=== PATIENT | female | born 1960 | race Caucasian/White ===

== ENCOUNTER → 2017-06-19 | Outpatient (CLI) | payer MEDICARE ==
[~2017-06-19] MED LIST: GADOBUTROL 10 MMOL/10 ML PFS ONE
== END ==
LOC: CFH 12:30
PROVIDERS: ATTEND Registered Nurse
DX: G52.9 Cranial nerve disorder, unspecified (principal); M47.814 Spondylosis without myelopathy or radiculopathy, thoracic region; M48.02 Spinal stenosis, cervical region; M47.893 Other spondylosis, cervicothoracic region; M25.78 Osteophyte, vertebrae
CPT/HCPCS: 70553; 72156; A9585

== ENCOUNTER → 2018-04-02 | Outpatient (CLI) | payer MEDICARE | END | disposition home or self-care (01) | LOC: CFH 10:35 | PROVIDERS: ATTEND Family Medicine | DX: D30.02 Benign neoplasm of left kidney (principal); K76.0 Fatty (change of) liver, not elsewhere classified | CPT/HCPCS: 76700 ==

== ENCOUNTER 2018-06-03 10:48 | Observation (INO) | payer MEDICARE ==
[~2018-06-03] VITALS: Ht 160 cm; Wt 98.6 kg
[2018-06-03] MEDS ORDERED: KETOROLAC 30 MG/1 ML ONE (11:25)
[2018-06-03] MEDS ORDERED: MORPHINE SULFATE 4 MG/ML, 1ML ONE ×4 (11:25→15:37)
[2018-06-03] MEDS ORDERED: KETOROLAC 30 MG/1 ML IVPush ONE (11:30)
[2018-06-03] MEDS: MORPHINE SULFATE 4 MG/ML, 1ML IVPush PRN ×2 (11:33→13:29)
--- NOTE | 2018-06-03 11:37 | NUR ---
PT MED NOTED FOR RLQ ABD PAIN 01/22. PT TO CT WITH TECH TRANSPORT
[2018-06-03 11:41] LABS: BASOPHILS % (AUTO) 0 % (0-1); EOSINOPHILS % (AUTO) 0 % (1-7); LYMPHOCYTES # (AUTO) 1.23 x10^3/uL (1-3.4); LYMPHOCYTES % (AUTO) 9 % (22-44); MD NO; MEAN CORPUSCULAR HEMOGLOBIN 29.9 pg (27.0-34.8); MEAN CORPUSCULAR HGB CONC 34.2 g/dL (32.4-35.8); MEAN CORPUSCULAR VOLUME 87.3 fL (80-100); MEAN PLATELET VOLUME 9.1 fL (7.4-10.4); MONOCYTES # (AUTO) 0.77 x10^3/uL (0.2-0.8); MONOCYTES % (AUTO) 6 % (2-9); NEUTROPHILS # (AUTO) 11.21 x10^3/uL (1.8-6.8); NEUTROPHILS % (AUTO) 85 % (42-75); PLATELET COUNT 230 x10^3/uL (130-400); RED BLOOD COUNT 4.82 x10^6/uL (3.82-5.3); RED CELL DISTRIBUTION WIDTH 13.2 % (9.6-15.2)
[2018-06-03 11:42] LABS: ALBUMIN 3.8 g/dL (3.4-5.0); ANION GAP 8 mmol/L (5-15); CALCIUM 9.1 mg/dL (8.5-10.1); CHLORIDE 102 mmol/L (98-107)
[2018-06-03 11:55] LABS: ALANINE AMINOTRANSFERASE 25 U/L (12-78); ALKALINE PHOSPHATASE 94 U/L (45-117); BILIRUBIN,TOTAL 0.6 mg/dL (0.2-1.0); CREATININE 0.76 mg/dL (0.55-1.02); TOTAL PROTEIN 7.2 g/dL (6.4-8.2)
--- NOTE | 2018-06-03 12:01 | NUR ---
PT OOB AMBULATE TO BATHROOM, UPRIGHT GAIT. INSTRUCTED ON COLLECTION OF CLEAN CATCH URINE SAMPLE
--- NOTE | 2018-06-03 13:37 | NUR ---
TASK RN: PT RESTING ON NORBETRO. VSS. CATHERINE CARE PERFORMED AND PT STRAIGHT CATHED. UA LABELED AND WALKED TO LAB.
[2018-06-03 13:59] LABS: MICROSCOPIC AUTO
[2018-06-03 14:00] LABS: CULTURE INDICATED? YES
[2018-06-03] MEDS ORDERED: MORPHINE SULFATE 4 MG/ML, 1ML IVPush ONE ×2 (14:30→15:30)
--- NOTE | 2018-06-03 15:00 | NUR ---
PT PAIN CONTINUES, PT SITTING ON EDGE OF GURNEY, C/O PAIN 01/22. DR. MENDOZA UPDATED.
--- NOTE | 2018-06-03 15:18 | NUR ---
PLAN FOR ADMIT PER CONVERSATION W/ DR. ALICEA
[2018-06-03] MEDS ORDERED: INSULIN REGULAR 100 UNITS/ML, 3ML VIAL ONE (16:29)
[2018-06-03] MEDS ORDERED: ACETAMINOPHEN 325 MG TABLET PO PRN (16:30)
[2018-06-03] MEDS ORDERED: LIDODERM 5% PATCH TD PRN (16:30)
[2018-06-03] MEDS ORDERED: LABETALOL 5MG/ML, 20ML IVPush PRN (16:30)
[2018-06-03] MEDS ORDERED: BISACODYL 10 MG SUPP PR PRN (16:30)
[2018-06-03] MEDS ORDERED: ONDANSETRON 2MG/ML, 2ML IVPush PRN (16:30)
[2018-06-03] MEDS ORDERED: DOCUSATE 100 MG CAPSULE PO PRN (16:30)
[2018-06-03] MEDS ORDERED: ONDANSETRON ODT 4 MG PO PRN (16:30)
[2018-06-03] MEDS ORDERED: ENALAPRILAT 1.25 MG/ML, 2ML IVPush PRN (16:30)
[2018-06-03] MEDS ORDERED: ENOXAPARIN 40 MG/0.4 ML ONE (16:56)
[2018-06-03] MEDS ORDERED: OMNIPAQUE 350 MG/ML, 100ML BOTTLE ONE (17:15)
[2018-06-03] MEDS ORDERED: MORP-59 PO (18:15)
[2018-06-03] MEDS ORDERED: LISI30TA4 PO (18:18)
[2018-06-03] MEDS ORDERED: BACL20TA PO (18:19)
[2018-06-03] MEDS ORDERED: MELO15TA24 PO (18:19)
[2018-06-03] MEDS ORDERED: LEVO25TA4 PO (18:20)
[2018-06-03] MEDS ORDERED: VENL25TA PO (18:21)
[2018-06-03] MEDS ORDERED: SIMV40TA3 PO (18:25)
[2018-06-03] MEDS: SODIUM CHLORIDE 0.9% 1,000 ML IV SCH (18:28)
[2018-06-03 19:02] VITALS: BP 101/62
[2018-06-03] MEDS: KETOROLAC 30 MG/1 ML IV PRN (20:50)
[2018-06-03] MEDS: ENOXAPARIN 40 MG/0.4 ML SQ SCH (20:50)
[2018-06-03] MEDS: LACTULOSE 10 GM/15 ML UDC PO SCH (20:50)
[2018-06-03 21:10] VITALS: BP 104/65
[2018-06-03] MEDS: CYCLOBENZAPRINE 10 MG TABLET PO PRN (22:49)
[2018-06-04 03:18] VITALS: BP 96/64
[2018-06-04] MEDS: SODIUM CHLORIDE 0.9% 1,000 ML IV SCH ×3 (03:25→22:03)
[2018-06-04 05:26] LABS: BASOPHILS # (AUTO) 0.01 x10^3/uL (0-0.1); BASOPHILS % (AUTO) 0 % (0-1); EOSINOPHILS # (AUTO) 0.01 x10^3/uL (0-0.4); EOSINOPHILS % (AUTO) 0 % (1-7); LYMPHOCYTES # (AUTO) 1.58 x10^3/uL (1-3.4); LYMPHOCYTES % (AUTO) 14 % (22-44); MD NO; MEAN CORPUSCULAR HGB CONC 34.1 g/dL (32.4-35.8); MEAN CORPUSCULAR VOLUME 87.8 fL (80-100); MEAN PLATELET VOLUME 9.2 fL (7.4-10.4); MONOCYTES # (AUTO) 0.71 x10^3/uL (0.2-0.8); MONOCYTES % (AUTO) 6 % (2-9); NEUTROPHILS # (AUTO) 9.39 x10^3/uL (1.8-6.8); NEUTROPHILS % (AUTO) 80 % (42-75); PLATELET COUNT 176 x10^3/uL (130-400); RED BLOOD COUNT 4.23 x10^6/uL (3.82-5.3); RED CELL DISTRIBUTION WIDTH 13.3 % (9.6-15.2)
[2018-06-04 05:41] LABS: ALBUMIN 3.1 g/dL (3.4-5.0); ANION GAP 8 mmol/L (5-15); CALCIUM 7.8 mg/dL (8.5-10.1); CHLORIDE 105 mmol/L (98-107)
[2018-06-04] MEDS: KETOROLAC 30 MG/1 ML IV PRN ×3 (05:52→21:15)
[2018-06-04 05:54] LABS: ALANINE AMINOTRANSFERASE 21 U/L (12-78); ALKALINE PHOSPHATASE 81 U/L (45-117); BILIRUBIN,TOTAL 0.6 mg/dL (0.2-1.0); CHOL/HDL RATIO 3.2; CHOLESTEROL, TOTAL 128 mg/dL (140-239); CREATININE 0.74 mg/dL (0.55-1.02); HDL CHOL % 31 % (28-40); HDL CHOLESTEROL (DIRECT) 40 mg/dL (40-60); LDL CHOLESTEROL,CALCULATED 58 mg/dL (54-169); LDL/HDL RATIO 1.5 (0.5-3.0); TRIGLYCERIDES 149 mg/dL (50-200); VLDL CHOLESTEROL 30 mg/dL (0-25)
[2018-06-04 06:09] LABS: HEMOGLOBIN A1C 5.9 % (4.2-6.3)
[2018-06-04 07:11] VITALS: BP 101/64
[2018-06-04] MEDS: LACTULOSE 10 GM/15 ML UDC PO SCH ×2 (08:18→21:00)
[2018-06-04] MEDS: SENNA/DOCUSATE TABLET PO SCH (08:19)
[2018-06-04] MEDS: MAGNESIUM CITRATE 300ML ORAL SOL PO PRN ×2 (08:19→16:18)
[2018-06-04] MEDS: CYCLOBENZAPRINE 10 MG TABLET PO PRN (08:19)
[2018-06-04 14:27] VITALS: BP 102/67
[2018-06-04 18:27] VITALS: BP 108/69
[2018-06-04] MEDS ORDERED: SIMVASTATIN 40 MG TABLET PO SCH (21:00)
[2018-06-04] MEDS: MORPHINE SULFATE 15 MG PO SCH (21:00)
[2018-06-04] MEDS: ENOXAPARIN 40 MG/0.4 ML SQ SCH (21:14)
[2018-06-04] MEDS: MELOXICAM 15 MG TABLET PO SCH (21:15)
[2018-06-04] MEDS: BACLOFEN 10 MG TABLET PO SCH (21:15)
[2018-06-05 00:31] VITALS: BP 123/76
[2018-06-05] MEDS: CYCLOBENZAPRINE 10 MG TABLET PO PRN (04:07)
[2018-06-05] MEDS: KETOROLAC 30 MG/1 ML IV PRN (04:07)
[2018-06-05 07:05] VITALS: BP 116/59
[2018-06-05] MEDS: LACTULOSE 10 GM/15 ML UDC PO SCH (08:57)
[2018-06-05] MEDS: MELOXICAM 15 MG TABLET PO SCH (08:58)
[2018-06-05] MEDS: BACLOFEN 10 MG TABLET PO SCH (08:58)
[2018-06-05] MEDS ORDERED: VENLAFAXINE 75MG TABLET PO SCH (09:00)
[2018-06-05] MEDS: MORPHINE SULFATE 15 MG PO SCH (09:00)
[2018-06-05] MEDS ORDERED: LEVOTHYROXINE 25 MCG TABLET PO SCH (09:00)
[2018-06-05] MEDS: SENNA/DOCUSATE TABLET PO SCH (09:00)
[2018-06-05] MEDS ORDERED: LISINOPRIL 10 MG TABLET PO SCH (09:00)
== END 2018-06-05 09:30 | disposition home or self-care (01) ==
LOC: ED 12:26 → INTOOBSV 15:25 → EDIP 15:25 → 3NE 17:35
PROVIDERS: ADMIT Internal Medicine; ATTEND Internal Medicine
DX: R10.9 Unspecified abdominal pain (principal); K59.00 Constipation, unspecified; E03.9 Hypothyroidism, unspecified; R73.9 Hyperglycemia, unspecified; I10 Essential (primary) hypertension; E78.5 Hyperlipidemia, unspecified; F41.9 Anxiety disorder, unspecified; E78.00 Pure hypercholesterolemia, unspecified; D72.829 Elevated white blood cell count, unspecified; Z79.899 Other long term (current) drug therapy
CPT/HCPCS: 36415; 74174; 74176; 80053; 80061; 81001; 83036; 83605; 83690; 84443; 85025; 87086; 96361; 96372; 96374; 96375; 96376; 99285; G0378; J1650; J1885; J7030; Q9967

== ENCOUNTER → 2018-10-20 | Outpatient (CLI) | payer MEDICARE ==
[~2018-10-20] MED LIST changes: +BACL20TA PO; +LEVO25TA4 PO; +LISI30TA4 PO; +MELO15TA24 PO; +MORP-59 PO; +SIMV40TA3 PO; +VENL25TA PO
== END | disposition home or self-care (01) ==
LOC: CARD 12:22
PROVIDERS: ATTEND Registered Nurse
DX: R41.3 Other amnesia (principal)
CPT/HCPCS: 70553; 95819; A9585

== ENCOUNTER 2019-01-26 11:12 | Outpatient (CLI) | payer MEDICARE | END 2019-01-26 23:59 | disposition home or self-care (01) | LOC: RAD 11:12 | PROVIDERS: ATTEND Internal Medicine Cardiovascular Disease | DX: Z01.810 Encounter for preprocedural cardiovascular examination (principal) | CPT/HCPCS: 78452; 93017; A9502; J2785 ==

== ENCOUNTER 2019-01-27 13:50 | Outpatient (CLI) | payer MEDICARE | END 2019-01-27 23:59 | disposition home or self-care (01) | LOC: STAR 13:50 | PROVIDERS: ATTEND Orthopaedic Surgery | DX: Z01.818 Encounter for other preprocedural examination (principal); M17.0 Bilateral primary osteoarthritis of knee; I25.2 Old myocardial infarction | CPT/HCPCS: 87081; 93005 ==

== ENCOUNTER 2019-02-22 15:49 | Outpatient (CLI) | payer MEDICARE ==
[~2019-02-22 15:49] MED LIST changes: +ALBU90AE INH; +AMLO-150 PO; +ASPI-496 PO; +ASPI81TA45 PO; +ATOR40TA78 PO; +BACL-19 PO; +CELE200C PO; +CHOL5000 PO; -GADOBUTROL 10 MMOL/10 ML PFS ONE; +LATA2.5D3 EACHEYE; +LORA-439 PO; +SENN1TAB67 PO; +TRAZ-137 PO; +VENL150C6 PO; +VITA1CAP PO; +VITA400C43 PO
== END 2019-02-22 23:59 | disposition home or self-care (01) ==
LOC: CFH 15:49
PROVIDERS: ATTEND Orthopaedic Surgery
DX: M79.661 Pain in right lower leg (principal); R60.0 Localized edema